=== PATIENT | female | born 1970 | race Caucasian/White ===

== ENCOUNTER → 2019-12-13 09:46 | Outpatient (CLI) | payer OTHER, SELFPAY ==
--- NOTE | ~2019-12-13 | US_ITS ---
EXAMINATION: US thyroid DATE: 12/13/2019 10:02 INDICATION: Thyroid disorder TECHNIQUE: Multiple ultrasound images of the thyroid were obtained. COMPARISON: None. FINDINGS: The right thyroid lobe measures 5.3 x 2.3 x 2.1 cm. The left thyroid lobe measures 5.2 x 2.1 x 2.1 c m. There is heterogeneous echogenicity with coarsened echotexture throughout both the left and right thyroid lobes. No discrete nodules identified. IMPRESSION: 1. Enlarged heterogeneous thyroid without discrete thyroid nodules which could be seen in the setting of Zhen's thyroiditis. Reviewed, dictated and finalized at location A.
== END ==
PROVIDERS: PCP Physician Assistant; Visit Provider Nurse Practitioner
DX: E07.9 Disorder of thyroid, unspecified (principal)
CPT/HCPCS: 76536

== ENCOUNTER 2019-12-18 10:10 | Outpatient (CLI) | payer OTHER, SELFPAY ==
--- NOTE | ~2019-12-18 | MM_ITS ---
EXAMINATION: MM screening nj BI w reshma HISTORY: Screening mammogram TECHNIQUE: Craniocaudal and mediolateral oblique 3-D tomosynthesis images were obtained and synthetic 2-D images were generated. CAD analysis was submitted and interpreted. COMPARISON: Comparison to multiple prior studies sequentially, with oldest reviewed study dated 07/2013. BREAST PARENCHYMAL COMPOSITION: There are scattered areas of fibroglandular density. FINDINGS: There is no evidence of suspicious mass, calcification, or architectural distortion to sugg est malignancy in either breast. There has been no suspicious interval change. IMPRESSION: 1. No mammographic evidence of malignancy. 2. Recommend routine screening mammography in one year. BI-RADS Category 1: Negative Reviewed, dictated and finalized at location A.
== END 2019-12-18 10:11 | disposition home or self-care (01) ==
LOC: ANHIMG 10:12
PROVIDERS: PCP Physician Assistant; Visit Provider Nurse Practitioner
DX: Z12.31 Encounter for screening mammogram for malignant neoplasm of breast (principal)
CPT/HCPCS: 77063; 77067

== ENCOUNTER → 2020-09-05 13:28 | Outpatient (CLI) | payer OTHER, SELFPAY ==
--- NOTE | ~2020-09-05 | XR_ITS ---
XR thoracic spine 3V DATE: 09/05/2020 14:18 INDICATION: Back pain. Right upper quadrant pain. TECHNIQUE: AP, lateral, swimmer views COMPARISON: 04/11/2012 thoracic spine FINDINGS: There is diffuse idiopathic skeletal hyperostosis of the lower thoracic spine. No fracture or bone destruction is evident. The thoracic pedicles are intact. No paraspinal soft tiss ue thickening. IMPRESSION: Diffuse idiopathic skeletal hyperostosis Reviewed, dictated and finalized at location A.
--- NOTE | ~2020-09-05 | CT_ITS ---
EXAMINATION: CT abdomen w con EXAM DATE: 09/05/2020 14:07 INDICATION: Right upper quadrant pain. Nausea, diarrhea TECHNIQUE: Spiral CT of the abdomen was performed following intravenous injection of 100 mL Omnipaque 350. Axial, coronal and sagittal images were reviewed. The dose-length product (DLP) for this exam ination was 721.00 mGy-cm. The exposure was tailored according to patient size (auto mA exposure con trol), and iterative reconstruction (ASIR) was used as additional dose reduction technique. Compariso n is made to prior examination from 05/31/2019. FINDINGS: There is a right paraspinal mass at T7 level measuring 2.2 cm, 64 average Hounsfield units. It is well defined and there is no adjacent osseous erosion, has nonaggressive appearance, although not completely imaged on this study. This level was not imaged on the prior abdomen pelvis CT for chr onicity. 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 Are there any old CT chest ex ams from outside institution for comparison? Suspect right liver dome lesion with peripheral nodular enhancement measuring about 2 cm, probably a hemangioma. The spleen, pancreas, adrenal glands are unremarkable. Gallbladder is unremarkable. No biliary obstruction. Portal and splenic veins are patent. Kidneys enhance symmetrically. There is no hydronephrosis. There is no retroperitoneal lymphadenopathy. The appendix is normal. There is small sliding gastroesophageal hiatal hernia. There is expected am ount of colonic stool. No free intraperitoneal gas. The heart is normal in size. There are no pe ricardial or pleural effusions. The lung bases are unremarkable. There are no osteoblastic or osteo lytic lesions identified. IMPRESSION: 1. Incidental mid thoracic right paraspinal mass, incompletely imaged. Inquire about any old cross-se ctional imaging to determine temporal stability. Barring that, recommend MR thoracic spine without an d with contrast for better characterization, although differential diagnosis probably will not change , assuming nonaggressive features on that exam. 2. Small right liver dome lesion likely hemangioma. 3. Small hiatal hernia. 4. No acute abdominal findings. Reviewed, dictated and finalized at location A. IMPRESSION: 1. Incidental mid thoracic right paraspinal mass, incompletely imaged. Inquire about any old cross-sectional imaging to determine temporal stability. Barring that, recommend MR thoracic spine without and with contrast for better characte rization, although differential diagnosis probably will not change, assuming no naggressive features on that exam. 2. Small right liver dome lesion likely hemangioma. 3. Small hiatal hernia. 4. No acute abdominal findings.
== END ==
PROVIDERS: PCP Physician Assistant; Visit Provider Physician Assistant
DX: K44.9 Diaphragmatic hernia without obstruction or gangrene (principal)
CPT/HCPCS: 72072; 74160; Q9967

== ENCOUNTER → 2020-09-12 14:32 | Outpatient (CLI) | payer OTHER, SELFPAY ==
--- NOTE | ~2020-09-12 | MR_ITS ---
EXAMINATION: MR thoracic spine wo/w con EXAM DATE: 09/12/2020 15:38 INDICATION: Mass of thoracic structure mass of thoracic structure. TECHNIQUE: Multi-sequential, multiplanar MR images of the thoracic spine were obtained without contra st. Sagittal T1, T2, T2 fat saturation, axial T2 weighted images reviewed. Correlation is made to CT abdomen 09/05/2020. FINDINGS: Right paraspinal region, lateral to the T7 vertebral body is a T2 hyperintense, T1 hypointe nse well-circumscribed ovoid mass lesion, which also demonstrates avid enhancement. Measurements are 2.5 x 1.9 cm axial dimensions by 3.2 cm craniocaudal dimension. Appearance is characteristic of a per ipheral nerve sheath tumor. Given it appears encapsulated, has nonaggressive features, malignant hist ologies of sympathetic or perisplenic chain tumor, or lymphoma are much less likely but not totally e xcludable. No other areas of abnormal enhancement. There is mild thoracic spondylosis without significant centra l canal or neural foraminal stenosis. Normal bone marrow signal. 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 Consider neurosurgical consult for further management. At a minimum, a 3-6 month fo llow-up MR with contrast should be obtained to determine stability. Reviewed, dictated and finalized at location A. IMPRESSION: Right mid thoracic paraspinal mass, appearance most consistent wit h benign peripheral nerve sheath tumor. Consider neurosurgical consult for furt her management. At a minimum, a 3-6 month follow-up MR with contrast should be obtained to determine stability.
[2020-09-12 15:15] LABS: Estimated Glomerular Filt Rate > 60
== END ==
PROVIDERS: PCP Physician Assistant; Visit Provider Physician Assistant
DX: R22.2 Localized swelling, mass and lump, trunk (principal)
CPT/HCPCS: 72157; A9577

== ENCOUNTER → 2020-10-11 15:00 | Outpatient (CLI) | payer OTHER, SELFPAY ==
--- NOTE | ~2020-10-11 | MR_ITS ---
EXAMINATION: MR cervical spine wo con DATE: 10/11/2020 15:59 INDICATION: Neck pain. TECHNIQUE: Magnetic resonance imaging (MRI) of the cervical spine was performed without intravenous c ontrast. Sequences included sagittal T2-weighted FSE, sagittal STIR FSE, sagittal T1-weighted FSE, ax ial MERGE, and axial T2-weighted FSE. COMPARISON: None FINDINGS: Bone alignment is normal. Vertebral body heights and intervertebral disc heights are normal . The spinal cord signal intensity is normal. The following disc levels are specifically discussed: C2-C3: The disc does not extend beyond the endplate margin. There is no uncovertebral joint osteoarth ritis. There is mild right and severe left facet joint osteoarthritis. There is mild left neural fora shine stenosis. There is no central canal stenosis. C3-C4: The disc does not extend beyond the endplate margin. There is no uncovertebral joint osteoarth ritis. There is mild right and severe left facet joint osteoarthritis. There is no neural foraminal s tenosis. There is no central canal stenosis. C4-C5: The disc does not extend beyond the endplate margin. There is no uncovertebral joint osteoarth ritis. There is severe bilateral facet joint osteoarthritis. There is mild left neural foraminal sten osis. There is no central canal stenosis. C5-C6: The disc does not extend beyond the endplate margin. There is no uncovertebral joint osteoarth ritis. There is severe right and mild left facet joint osteoarthritis. There is no neural foraminal s tenosis. There is no central canal stenosis. C6-C7: The disc does not extend beyond the endplate margin. There is no uncovertebral joint osteoarth ritis. There is severe bilateral facet joint osteoarthritis. There is no neural foraminal stenosis. T here is no central canal stenosis. C7-T1: The disc does not extend beyond the endplate margin. There is no uncovertebral joint osteoarth ritis. There is severe bilateral facet joint osteoarthritis. There is mild left neural foraminal sten osis. There is no central canal stenosis. IMPRESSION: 1. Mild cervical spondylosis. Reviewed, dictated and finalized at location B.
== END ==
PROVIDERS: PCP Physician Assistant; Visit Provider Nurse Practitioner Acute Care
DX: D49.2 Neoplasm of unspecified behavior of bone, soft tissue, and skin (principal); M47.892 Other spondylosis, cervical region
CPT/HCPCS: 72141

== ENCOUNTER 2021-03-01 14:05 | Emergency (ER) | payer OTHER, SELFPAY ==
--- NOTE | ~2021-03-01 | XR_ITS ---
EXAMINATION: XR hand RT min 3V DATE: 03/01/2021 14:33 INDICATION: Right hand injury and pain. TECHNIQUE: 3 views of right hand were obtained. COMPARISON: None. FINDINGS: Bone alignment is normal. No fracture. There is mild osteoarthritis of second metacarpophal angeal joint. IMPRESSION: 1. No fracture. Reviewed, dictated and finalized at location A. IMPRESSION: 1. No fracture.
[2021-03-01 14:10] VITALS: BP 141/92; PULSE 97; RESP 16; TEMP 36.1; O2SAT 99
--- NOTE | 2021-03-01 14:43 | ED.GENADULT ---
HPI - General Adult General Chief complaint: Extremity Injury, Upper Stated complaint: Needs Xray Finger Time Seen by Provider: 03/01/21 14:18 Source: patient Mode of arrival: ambulatory Limitations: no limitations History of Present Illness HPI narrative: Patient presents with chief complaint of pain, bruising and swelling to the right third digit that she sustained after having books fall on the extremity while at work. The extremity was hyperextended. Patient states that she took ibuprofen prior to arrival. Patient denies any other injuries. Related Data Home Medications Medication Instructions Recorded Confirmed levonorgestrel 20 mcg/24 hours (6 1 device I-UTERINE ONCE 05/25/19 07/05/19 yrs) 52 mg intrauterine device calcium carbonate [Tums] 200 mg PO BID PRN 07/05/19 07/05/19 Allergies Allergy/AdvReac Type Severity Reaction Status Date / Time No Known Allergies Allergy Mild Verified 07/06/19 11:37 Review of Systems Review of Systems: CONSTITUTIONAL: Denies fever, chills, or sweats. EYES: Denies visual changes, redness, or discharge. ENT: Denies rhinorrhea, congestion, sore throat, or otalgia. CARDIOVASCULAR: Denies chest pain, palpitations, or edema. RESPIRATORY: Denies cough or dyspnea. GASTROINTESTINAL: Denies abdominal pain, nausea, vomiting, or diarrhea. GENITOURINARY: Denies dysuria or hematuria. SKIN: Denies rash or itching. MUSCULOSKELETAL: Reports pain and swelling and bruising denies back pain or myalgia. NEUROLOGIC: Denies headache, numbness, dizziness, or weakness. PSYCHIATRIC: Denies anxiety or depression. [facility] Past Medical History Medical History (Updated 03/01/21 @ 14:52 by Brian Duffy PA-C) GERD (gastroesophageal reflux disease) Social History Social History Smoking status: Former smoker Tobacco type: cigarettes Alcohol intake: current Alcohol use details: rarely Exam Narrative: GENERAL: Well-appearing, well-nourished, and in no acute distress. HEAD: Normocephalic, atraumatic. EYES: PERRLA and EOMI. CHEST: Clear to auscultation. No respiratory distress. No wheezes rales or rhonchi HEART: Regular rate and rhythm. EXTREMITIES: Bruising to the right third digit with decreased flexion at the MCP. Mild swelling noted. No open wounds. SKIN: Warm, dry, no rash. NEURO: No focal deficits. Alert and oriented x3. PSYCH: Normal mood and affect. Course Vital Signs Vital signs: Vital Signs Temperature 97.0 F L 03/01/21 14:10 Pulse Rate 97 03/01/21 14:10 Respiratory Rate 16 03/01/21 14:10 Blood Pressure 141/92 H 03/01/21 14:10 Pulse Oximetry 99 03/01/21 14:10 Temperature 97.0 F L 03/01/21 14:10 Pulse Rate 97 03/01/21 14:10 Respiratory Rate 16 03/01/21 14:10 Blood Pressure 141/92 H 03/01/21 14:10 Pulse Oximetry 99 03/01/21 14:10 Medical Decision Making MDM Narrative Medical decision making narrative: Symptoms with patient sprain care the need to follow-up with primary care or specialist for further evaluation. Discussed the x-ray does not show any ligament injury and patient has decreased flexion. Discussed the need to follow-up with for further evaluation of tendon and ligament function. Vital Signs Vital Signs: Vital Signs Temperature 97.0 F L 03/01/21 14:10 Pulse Rate 97 03/01/21 14:10 Respiratory Rate 16 03/01/21 14:10 Blood Pressure 141/92 H 03/01/21 14:10 Pulse Oximetry 99 03/01/21 14:10 Temperature 97.0 F L 03/01/21 14:10 Pulse Rate 97 03/01/21 14:10 Respiratory Rate 16 03/01/21 14:10 Blood Pressure 141/92 H 03/01/21 14:10 Pulse Oximetry 99 03/01/21 14:10 Imaging Data Radiologist's impression: ITS Impressions Hand X-Ray 03/01/21 14:33 IMPRESSION: 1. No fracture. Discharge Plan Discharge Clinical Impression: Other sprain of right middle finger, initial encounter Patient Disposition: Home, Self-Care
== END 2021-03-01 15:05 | disposition home or self-care (01) ==
PROVIDERS: Emergency Provider Emergency Medicine; PCP Physician Assistant
DX: S63.612A Unspecified sprain of right middle finger, initial encounter (principal); K21.9 Gastro-esophageal reflux disease without esophagitis; Z87.891 Personal history of nicotine dependence; W20.8XXA Other cause of strike by thrown, projected or falling object, initial encounter
CPT/HCPCS: 29130; 73130; 99283

== ENCOUNTER → 2021-04-30 14:44 | Outpatient (CLI) | payer OTHER, SELFPAY ==
--- NOTE | ~2021-04-30 | XR_ITS ---
EXAMINATION: XR foot LT min 3V DATE: 04/30/2021 14:59 INDICATION: Left foot pain TECHNIQUE: Dorsoplantar, lateral, and 2 oblique views of the left foot were obtained. COMPARISON: None. FINDINGS: There is no fracture, dislocation, or subluxation. There is mild polyarticular osteoarthrit is in several interphalangeal joints and at the first metatarsophalangeal joint. A plantar calcaneal enthesophyte is noted. The soft tissues are unremarkable. IMPRESSION: 1. No acute osseous abnormality. 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
== END ==
PROVIDERS: PCP Physician Assistant; Visit Provider Physician Assistant
DX: S99.922A Unspecified injury of left foot, initial encounter (principal)
CPT/HCPCS: 73630

== ENCOUNTER 2022-01-04 07:28 | Outpatient (CLI) | payer OTHER, SELFPAY ==
--- NOTE | 2022-01-22 14:28 | WPDHOMESLEEP ---
Sleep Study - Home Unattended Date of Study: 01/04/22 Ordering Provider: Erum Flores, RACHAEL Interpreting Provider: Seema Vann, DO Home Sleep Study Type: Watch PAT Height: 1.68 m Weight: 110.223 kg Body Mass Index: 39.2 Neck Circumference (inches): 15 [place]: 9 Reason for Sleep Study Snoring and unrefreshing sleep. Sleep History The patient is a 51-year-old female with hypothyroidism, anxiety, depression, GERD and perimenopause that had a sleep study ordered by her primary care for evaluation of sleep apnea. 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 She rarely awakens from sleep short of breath. She rarely awakens at night with heartburn, belching or cough. She constantly snores loud enough that others complain. She rarely has trouble sleeping when she has a cold. She denies waking up gasping for air throughout the night. She constantly has breathing problems at night observed by herself and others. She constantly sweats excessively at night. She denies having heart palpitations or irregular heartbeats during the night. She occasionally falls asleep during the day but never while driving. She denies sleep paralysis and cataplexy. She occasionally has trouble at school or work due to sleepiness. She occasionally experiences vivid dreamlike scenes upon awakening or falling asleep. She rarely has nightmares and occasionally remembers her dreams. She frequently has thoughts racing through her mind. She occasionally feels sad or depressed. She constantly has anxiety. She occasionally has muscular tension. She occasionally notices parts of her body jerk. She denies kicking during the night. She occasionally has crawling and aching feelings in her legs but rarely has leg pain during the night. She denies grinding her teeth during sleep and awakening with morning jaw pain. She denies being bothered by pain during the day and denies being awakened by pain during the night. She constantly wakes up feeling stiff in the morning. She constantly wakes up with sore or achy muscles. She constantly wakes up with pain in the neck, spine and other joints. She goes to bed between 9-10 p.m. on weekdays and between 11:00 p.m. and midnight on the weekends. She can fall asleep within 10-15 minutes. She doesn't wake up throughout the night. She wakes up at 6:00 a.m. on weekdays and 9:00 a.m. on the weekends. She typically gets 7-8 hours of sleep per night. She will stay in bed for 1 hour after waking up on the weekends. She currently lives with her . She does not consume any caffeinated beverages within 2 hours of bedtime. She does not engage in physical exercise before bedtime. She will watch television before falling asleep. She will take naps in the afternoon or the evening but they are not refreshing. She drinks 2-3 caffeinated beverages per day. She will drink alcohol occasionally. She denies tobacco and recreational drug use. [facility] Past Medical History Medical History GERD (gastroesophageal reflux disease) Social History Social History Smoking status: Former smoker Tobacco type: cigarettes Alcohol intake: current Alcohol use details: rarely Medications Home Medications Medication Instructions Recorded Confirmed Type levonorgestrel 20 mcg/24 hours (7 1 device intrauterine ONCE 05/25/19 07/05/19 History yrs) 52 mg intrauterine device (Mirena) calcium carbonate 200 mg calcium 200 mg PO BID PRN Indigestion 07/05/19 07/05/19 History (500 mg) chewable tablet (Tums) omeprazole 20 mg capsule,delayed See Rx Instructions .Route 03/01/20 Rx release .COMPLEX #30 caps Sleep Procedure The sleep study was completed using [employer] a technically adequate device with seven channels: peripheral arterial tone, actigraphy, body position, snore, respiratory movement, pulse oximetry, slee
[2022-01-22 14:34] VITALS: BMI 39.2
== END 2022-01-07 11:34 | disposition home or self-care (01) ==
LOC: ANHCSM 07:29
PROVIDERS: PCP Physician Assistant; Visit Provider Physician Assistant
DX: G47.9 Sleep disorder, unspecified (principal); G47.33 Obstructive sleep apnea (adult) (pediatric)
CPT/HCPCS: 95800

== ENCOUNTER 2022-03-15 14:37 | Outpatient (CLI) | payer OTHER, SELFPAY ==
--- NOTE | 2022-03-15 | ECHO_ITS ---
Patient Info Name: Kaylyn Williamson Age: 51 years : 1970 Gender: Female Ht: 66 in Wt: 240 lbs BSA: 2.30 m2 HR: 83 bpm BP: 122 / 84 mmHg Technical Quality: Fair Exam Date: 03/15/2022 3:07 PM Exam Location: [facility] Patient Status: Outpatient Admit Date: 03/15/2022 Staff Ordering Physician: IssaErum PA-C Boom Tender: Yasmine Villela RDCS Attending Provider: Erum Love PA-C Exam Type: CA echo doppler color flow Study Info Indications R94.31 - Abnormal electrocardiogram ECG EKG Complete two-dimensional, color flow and Doppler transthoracic echocardiogram is performed. Summary 1. Complete two-dimensional, color flow and Doppler transthoracic echocardiogram is performed. 2. Left ventricular chamber dimension is normal. 3. Left ventricular systolic function is normal, estimated at 60-65%. 4. The left ventricular diastolic function is normal. 5. Left atrial chamber dimension is mildly enlarged. 6. No pulmonary hypertension, estimated pulmonary arterial systolic pressure is 27 mmHg. Left Ventricle Tissue doppler is not performed. Left ventricular chamber dimension is normal. Left ventricular systolic function is normal, estimated at 60-65%. The left ventricular diastolic function is normal. Right Ventricle Right ventricular chamber dimension is normal. Right ventricular systolic function is normal. Left Atria Left atrial chamber dimension is mildly enlarged. Right Atria Right atrial chamber dimension is normal. Aortic Valve The aortic valve is trileaflet. There is no aortic valve stenosis. There is no aortic valve regurgitation. Pulmonic Valve There is no pulmonic regurgitation. Mitral Valve There is no mitral valve stenosis. There is no mitral valve regurgitation. Tricuspid Valve There is no tricuspid valve regurgitation. No pulmonary hypertension, estimated pulmonary arterial systolic pressure is 27 mmHg. Pericardium/Pleural There is no pericardial effusion. Inferior Vena Cava Normal inferior vena cava with >50% collapse upon inspiration consistent with normal right atrial pressure, 5 mmHg. Aorta The aortic root size at the sinus of Valsalva is normal. Left Ventricular Outflow Tract Name Value Normal LVOT 2D LVOT Diameter 2.0 cm LVOT Doppler LVOT Peak Gradient 5 mmHg LVOT Mean Gradient 3 mmHg LVOT VTI 22 cm LVOT VTI/AV VTI Ratio 1.0 LVOT Stroke Volume 66 ml LVOT CO 13.8 l/min LVOT CI 6.0 l/min/m2 Pulmonic Valve Name Value Normal PV Doppler PV Peak Gradient 3 mmHg Mitral Valve Na
== END 2022-03-15 14:38 | disposition home or self-care (01) ==
PROVIDERS: PCP Physician Assistant; Visit Provider Physician Assistant
DX: R94.31 Abnormal electrocardiogram [ECG] [EKG] (principal)
CPT/HCPCS: 93306

== ENCOUNTER 2023-05-29 11:09 | Emergency (ER) | payer OTHER, SELFPAY ==
[2023-05-29 11:26] VITALS: BP 118/104; PULSE 101; RESP 16; TEMP 37.1; O2SAT 100
--- NOTE | 2023-05-29 11:46 | ED.URI ---
HPI - URI/Sore Throat General Chief Complaint: Upper Respiratory Infection Stated Complaint: COUGH/FEVER/HEADACHE/STUFFY NOSE/DRAINAGE/CP Time Seen by Provider: 05/29/23 11:47 Source: patient Mode of arrival: ambulatory Limitations: no limitations History of Present Illness HPI Narrative: 52-year-old female presented for complaints of worsening cough and chest discomfort with coughing over the past week. Endorses some mild sob with exertion and subjective fever. She also endorses nasal congestion and drainage with a sore throat. Patient's pcp prescribed Z-Celestino and Tessalon Perles 3 days ago, also guaifenesin with codeine but unable to tolerate it stating it keeps her awake. Denies any improvement with tessalon perles. Testing negative for covid every other day since onset. Denies wheezing, n/v/d. Related Data Home Medications Medication Instructions Recorded Confirmed levonorgestrel 21 mcg/24 hours (8 1 device intrauterine ONCE 05/25/19 05/29/23 yrs) 52 mg intrauterine device (Mirena) Allergies Allergy/AdvReac Type Severity Reaction Status Date / Time No Known Allergies Allergy Mild Verified 05/29/23 11:48 Review of Systems Review of Systems: CONSTITUTIONAL: Denies body aches, fever, chills, or sweats. EYES: Denies visual changes, redness, or discharge. ENT: Reports rhinorrhea, congestion, sore throat CARDIOVASCULAR: Denies chest pain, palpitations, or edema. RESPIRATORY: Reports cough, mild sob, denies wheezing. GASTROINTESTINAL: Denies abdominal pain, nausea, vomiting, or diarrhea. SKIN: Denies rash, itching, or wounds. MUSCULOSKELETAL: Denies back pain, joint pain, or myalgia. NEUROLOGIC: Denies headache, numbness, tingling, or weakness. All systems reviewed & are unremarkable except as noted in HPI and below PMFSH Past Medical History Medical History GERD (gastroesophageal reflux disease) Social History Social History Smoking status: Former smoker Tobacco type: cigarettes Alcohol intake: current Alcohol use details: rarely Comments At time of signature, I have reviewed and agree with nursing past medical, surgical, social and family history unless otherwise noted. Please see nursing chart for further information. There is no relevant family history pertinent to the presenting complaint Exam Narrative: GENERAL: Well-appearing, in no acute distress. EYES: EOMI. No redness or drainage. Conjunctivae normal. ENT: Mucous membranes pink and moist. TMs normal bilaterally. Throat normal. Uvula midline. NECK: Normal AROM. Supple. CHEST: No respiratory distress. Lungs clear to all uriarte. 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 HEART: Regular rate and rhythm. No murmur appreciated. ABDOMEN: Soft, nontender, nondistended, normal active bowel sounds. EXTREMITIES: Normal range of motion. No edema. SKIN: Warm, dry, no rash. Capillary refill normal. Normal skin turgor. NEURO: Alert and oriented x3. Gait steady. PSYCH: Normal affect. Course Course Emergency Course: Patient is aware of diagnosis, understands and agrees to treatment plan. Anticipatory guidance given. Patient agrees to follow-up as directed and is aware of reasons to seek care at the emergency department. Portions of this record may have been created with voice recognition software Level of Care: Express Care Visit Vital Signs Vital signs: Vital Signs Temperature 98.7 F 05/29/23 11:26 Pulse Rate 101 H 05/29/23 11:26 Respiratory Rate 16 05/29/23 11:26 Blood Pressure 118/104 H 05/29/23 11:26 Pulse Oximetry 100 05/29/23 11:26 Temperature 98.7 F 05/29/23 11:26 Pulse Rate 101 H 05/29/23 11:26 Respiratory Rate 16 05/29/23 11:26 Blood Pressure 118/104 H 05/29/23 11:26 Pulse Oximetry 100 05/29/23 11:26 MDM - URI/Sore Throat MDM Narrative Medical decision making narrative
== END 2023-05-29 12:05 | disposition home or self-care (01) ==
PROVIDERS: Emergency Provider Nurse Practitioner Family; PCP Physician Assistant
DX: J40 Bronchitis, not specified as acute or chronic (principal); Z87.891 Personal history of nicotine dependence; K21.9 Gastro-esophageal reflux disease without esophagitis
CPT/HCPCS: 99213; G0463

== ENCOUNTER 2023-06-06 10:24 | Emergency (ER) | payer OTHER, SELFPAY ==
[2023-06-06] VITALS (22 sets, daily range): BP systolic 124–173; BP diastolic 73–113; PULSE 81–109; RESP 11–25; TEMP 36.8; O2SAT 94–99
--- NOTE | ~2023-06-06 | XR_ITS ---
EXAMINATION: XR chest 2V DATE: 06/06/2023 11:06 INDICATION: Chest heaviness TECHNIQUE: PA and lateral views of the chest are obtained. COMPARISON: 09/17/2009 FINDINGS: The lungs are free of acute opacities. No pleural effusion or pneumothorax. The cardiomedia stinal silhouette is normal. There is moderate thoracic spondylosis. IMPRESSION: 1. No acute cardiopulmonary abnormality. Reviewed, dictated and finalized at location B. ELER
--- NOTE | ~2023-06-06 | CT_ITS ---
EXAMINATION: CTA chest PE protocol DATE: 06/06/2023 12:25 INDICATION: Midsternal chest pain TECHNIQUE: Computed tomography angiography (CTA) of the chest was performed with 100 mL Omnipaque-350 intravenous contrast timed to evaluate the pulmonary arteries. Coronal maximum intensity projection 3D-reconstructions were created by the technologist. The dose-length product (DLP) was 739.65 mGy-cm. Automated exposure control and iterative reconstruction technique were employed. COMPARISON: 09/05/2020; thoracic spine MRI, 09/12/2020 FINDINGS: The pulmonary arteries are well-opacified. No pulmonary embolism is identified. There is mi ld dependent atelectasis. No pleural effusion or pneumothorax. There is mild enlargement of a right p araspinal soft tissue mass which measures 2.9 x 2.1 cm, previously 2.5 x 1.9 cm. No pathologically en larged thoracic lymph nodes are identified. The heart size is normal. There is a small sliding hiatal hernia. There is mild thoracic spondylosis. IMPRESSION: 1. No pulmonary embolism or acute cardiopulmonary abnormality. 2. 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 Reviewed, dictated and finalized at location B. N INSTALLER IMPRESSION: 1. No pulmonary embolism or acute cardiopulmonary abnormality. 2. 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
--- NOTE | 2023-06-06 10:25 | ECG_ITS ---
Measurements Intervals [place] Rate: 101 P: 38 [place]: 141 QRS: -24 QRSD: 82 T: 16 QT: 317 QTc: 412 Interpretive Statements SINUS TACHYCARDIA BORDERLINE LEFT AXIS DEVIATION [QRS AXIS < -20] VOLTAGE CRITERIA FOR LVH [MEETS CRITERIA IN ONE OF: R(aVL), S(V1), R(V5), R(V5/V6)+S(V1)] NONSPECIFIC T-WAVE ABNORMALITY ABNORMAL ECG NO PREVIOUS ECG AVAILABLE FOR COMPARISON Electronically Signed On 06-06-2023 14:11:39 JOURNEY[employer] ELECT[employer]ICIAN by Walter Ellis M.D.
[2023-06-06] MEDS: ASPIRIN 81 MG CHEWABLE TABLET 324 MG PO (10:38)
[2023-06-06 10:41] LABS: Basophils Absolute Auto 0.1 K/mm3 (0.0-0.1); Basophils Percent Auto 0.7 % (0.2-1.2); Eosinophils Absolute Auto 0.2 K/mm3 (0-0.3); Eosinophils Percent Auto 1.2 % (0-4.4); Hematocrit 43.7 % (37.0-47.0); Hemoglobin 14.7 g/dL (12.0-15.0); Immature Granulocyte Absolute 0.04 K/mm3 (0.00-0.031); Immature Granulocyte Percent A 0.3 % (0-0.5); Lymphocytes Absolute Auto 3.29 K/mm3 (0.9-3.2); Lymphocytes Percent Auto 27.4 % (18.3-44.2); Mean Corpuscular HGB Conc 33.6 g/dl (32-36); Mean Corpuscular Hemoglobin 29.8 pg (26-34); Mean Corpuscular Volume 88.5 fl (80-100); Mean Platelet Volume 10.8 fl (7.4-10.4); Monocytes Absolute Auto 1.2 K/mm3 (0.1-0.6); Monocytes Percent Auto 10.2 % (2.6-8.5); Neutrophils Absolute Auto 7.2 K/mm3 (1.3-6.7); Neutrophils Percent Auto 60.2 % (45.5-73.1); Platelet Count Result 285 k/mm3 (150-375); Red Blood Count 4.94 M/mm3 (4.2-5.4); Red Cell Distribution Width 12.6 % (11.5-14.5)
[2023-06-06 10:51] LABS: Prothrombin Time 13.7 Seconds (11.1-14.7)
[2023-06-06 10:52] LABS: Partial Thromboplastin Time 20.5 SECONDS (22.3-36.8)
[2023-06-06 11:18] LABS: Alanine Aminotransferase 16 U/L (6-35); Albumin Level 3.5 g/dL (3.5-5.1); Alkaline Phosphatase 81 U/L (38-126); Anion Gap 2 mmol/L (8-16); Aspartate Amino Transferase 17 U/L (14-36); Bilirubin,Total 0.4 mg/dL (0.2-1.3); Blood Urea Nitrogen 12 mg/dL (7-17); Calcium 8.4 mg/dL (8.4-10.2); Carbon Dioxide 31 mmol/L (22-30); Chloride 106 mmol/L (98-107); Estimated CRCL calculation 89 ml/min; Estimated Glomerular Filt Rate > 60; Glucose 81 mg/dL (65-110); Lipase 217 U/L (23-300); Potassium 3.3 mmol/L (3.4-5.0); Sodium 139 mmol/L (137-145)
[2023-06-06 11:30] LABS: Troponin I < 0.012 ng/mL (0.000-0.034)
--- NOTE | 2023-06-06 11:31 | ED.GENADULT ---
[facility] - General Adult General Chief complaint: Chest Pain Stated complaint: Chest pains Time Seen by Provider: 06/06/23 10:31 Source: patient Mode of arrival: ambulatory Limitations: no limitations History of Present Illness HPI narrative: This is a 52-year-old female with PMH of GERD who presents to the ED with chief complaint of chest pain for the past couple of days, worse last night. Reports that it has been intermittent in nature. describes a central chest heaviness that comes on with a 6/10 pain when it comes. Reports that it radiates to the left shoulder and left arm at night. She has had occasional numbness and tingling in the upper extremities. She also reports palpitations. Reports recent history of bronchitis which seemed to have gotten better. Chest pain does not seem to be associated with cough. She does note that she has been under a lot of stress lately. Denies shortness of breath, LOC, vomiting, diaphoresis, fevers, chills, abdominal pain, nausea, urinary problems. Related Data Home Medications Medication Instructions Recorded Confirmed levonorgestrel 21 mcg/24 hours (8 1 device intrauterine ONCE 05/25/19 05/29/23 yrs) 52 mg intrauterine device (Mirena) Allergies Allergy/AdvReac Type Severity Reaction Status Date / Time No Known Allergies Allergy Mild Verified 06/06/23 10:38 Review of Systems Review of Systems: All systems as dictated in [facility] Past Medical History Medical History (Updated 06/06/23 @ 14:13 by Agustin Bennett PA-C) GERD (gastroesophageal reflux disease) Social History Social History Smoking status: Former smoker Tobacco type: cigarettes Alcohol intake: current Alcohol use details: rarely Exam Narrative: GENERAL: Well-appearing, well-nourished, and in no acute distress. HEAD: Normocephalic, atraumatic. EYES: PERRLA and EOMI. ENT: Nares clear, no rhinorrhea or epistaxis. Mucous membranes moist. Oropharynx without tonsillar hypertrophy exudate or other lesions. NECK: Supple. No adenopathy or masses. CHEST: No respiratory distress. Clear to auscultation. No wheezes rales or rhonchi HEART: Regular rate and rhythm. No murmur heard. Normal peripheral pulses. ABDOMEN: Soft, nontender, nondistended, normal active bowel sounds. MSK: Normal range of motion. No edema. SKIN: Warm, dry, no rash. NEURO: Alert and oriented x3. No focal deficits. PSYCH: Normal mood and affect. Course Vital Signs Vital signs: Vital Signs Temperature 98.2 F 06/06/23 10:28 Pulse Rate 109 H 06/06/23 10:28 Respiratory Rate 18 06/06/23 10:28 Blood Pressure 173/113 H 06/06/23 10:28 Pulse Oximetry 98 06/06/23 10:28 Oxygen Delivery Room Air 06/06/23 10:28 Temperature 98.2 F 06/06/23 10:28 Pulse Rate 83 06/06/23 13:46 Respiratory Rate 19 06/06/23 13:46 Blood Pressure 137/77 06/06/23 13:46 Pulse Oximetry 99 06/06/23 13:32 Oxygen Delivery Room Air 06/06/23 13:32 Medical Decision Making MDM Narrative Medical decision making narrative: This is a 52-year-old female who presents to the ED with chief complaint of chest pain for the past several days. Recent treatment for bronchitis. Vitals are normal. Exam is benign. EKG shows sinus rhythm. Comes in or only very slightly tachycardic at 101. No ischemia on ekg. Lab work is largely unremarkable. Serial troponin is negative. chest x-ray negative. D-dimer did end up being slightly elevated at 0.63, CTA PE protocol ordered. CTA: 1. No pulmonary embolism or acute cardiopulmonary abnormality. 2. 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 overall workup is grossly negative. Heart score 3. This chest pain may be due to a complaint of her bronchitis that she has been dealing with recently. Pt will be discharged in stable co
[2023-06-06 12:06] LABS: D Dimer 0.64 ug/mL (<0.48)
--- NOTE | 2023-06-06 13:27 | ECG_ITS ---
Measurements Intervals [place] Rate: 81 P: 20 MD: 153 QRS: -20 QRSD: 84 T: 15 QT: 388 QTc: 453 Interpretive Statements SINUS RHYTHM VOLTAGE CRITERIA FOR LVH [MEETS CRITERIA IN ONE OF: R(aVL), S(V1), R(V5), R(V5/V6)+S(V1)] NONSPECIFIC T-WAVE ABNORMALITY ABNORMAL ECG COMPARED TO ECG 06/06/2023 10:34:04 NO SIGNIFICANT DIFFERENCE Electronically Signed On 06-06-2023 14:16:48 FISCAL ANALYST by Walter Ellis M.D.
[2023-06-06 13:53] LABS: Troponin I < 0.012 ng/mL (0.000-0.034)
== END 2023-06-06 14:23 | disposition home or self-care (01) ==
PROVIDERS: Emergency Medicine; Emergency Provider Physician Assistant; PCP Physician Assistant
DX: R07.89 Other chest pain (principal); Z87.891 Personal history of nicotine dependence
CPT/HCPCS: 36415; 71046; 71275; 80053; 83690; 84484; 85025; 85380; 85610; 85730; 93005; 99284; A9270; Q9967

== ENCOUNTER 2024-01-16 13:54 | Outpatient (CLI) | payer OTHER, SELFPAY ==
--- NOTE | ~2024-01-16 | XR_ITS ---
EXAM: XR ankle LT min 3V DATE: 01/16/2024 14:06 HISTORY: fall 01-07-24 lateral ankle pain . COMPARISON: None available. FINDINGS: Normal mineralization. Acute and chronic avulsion fractures at the tip of the lateral mall eolus. No lytic or blastic lesion. Joint spaces are maintained. Plantar enthesopathy No erosion or pe riosteal change. Soft tissues within normal limits. IMPRESSION: Acute avulsion fracture at the tip of the left lateral malleolus. Reviewed, dictated and finalized at location K.
== END 2024-01-16 13:55 ==
LOC: MICIMG 13:56
PROVIDERS: PCP Physician Assistant; Visit Provider Physician Assistant
DX: S82.62XA Displaced fracture of lateral malleolus of left fibula, initial encounter for closed fracture (principal); X58.XXXA Exposure to other specified factors, initial encounter
CPT/HCPCS: 73610

== ENCOUNTER 2024-03-16 12:59 | Emergency (ER) | payer OTHER, SELFPAY ==
[2024-03-16] VITALS (20 sets, daily range): BP systolic 112–142; BP diastolic 67–102; PULSE 69–110; RESP 12–20; TEMP 36.6; O2SAT 98–100
--- NOTE | ~2024-03-16 | CT_ITS ---
CT abdomen pelvis w con Ordering provider: Darren Duckworth MD History: 53 years Female with . RLQ pain . Comparison: None. Technique: CT abdomen and pelvis with IV and without oral contrast. Automated exposure control and it erative reconstruction technique were employed. The dose-length product was 997.16 mGy-cm. 100 mL Omn ipaque 350 was given IV. Findings: VISUALIZED LOWER CHEST: Normal. Soft tissue density is seen in the right paraspinal area of the lower thoracic area measuring 2.5 x 1 .5 cm. UPPER ABDOMINAL ORGANS: Liver: Normal. Gallbladder: Normal. Spleen: Normal. Stomach/duodenum: Sliding hiatus hernia. Pancreas: Normal. Adrenals: Normal. Kidneys: Normal. PELVIC ORGANS: The bladder is underfilled with slightly thickened wall.. IUD is seen in the uterus. Fibroid in the right side of the uterus which measures 3.9 x 2.5 x 2.6 cm.. BOWEL AND MESENTERY: Colon: No evidence of diverticulitis. Normal appendix. Small Bowel: Normal. No obstruction. Peritoneum/mesentery: No free air or free fluid. No mesenteric lymphadenopathy. RETROPERITONEUM: Normal aorta. No retroperitoneal lymphadenopathy. MUSCULOSKELETAL: Superficial soft tissues: The superficial soft tissues are normal. Bones: Age appropriate degenerative changes of the spine. IMPRESSION: 1. No evidence of appendicitis, diverticulitis or intestinal obstruction. 2. Fibroid of the uterus. 3. Sliding hiatus hernia 4. Small soft tissue density in the right paraspinal area in the lower thoracic area. Further evalua tion advised. Reviewed, dictated and finalized at location A. IMPRESSION: 1. No evidence of appendicitis, diverticulitis or intestinal obstruction. 2. Fibroid of the uterus. 3. Sliding hiatus hernia 4. Small soft tissue density in the right paraspinal area in the lower thoraci c area. Further evaluation advised.
[2024-03-16] MEDS: SODIUM CHLORIDE 0.9% IV 1,000 ML 999 ML IV CONT (14:22)
[2024-03-16 14:27] LABS: Basophils Percent Auto 0.4 % (0.2-1.2); Eosinophils Absolute Auto 0.1 K/mm3 (0-0.3); Eosinophils Percent Auto 1.3 % (0-4.4); Hematocrit 42.9 % (37.0-47.0); Hemoglobin 14.6 g/dL (12.0-15.0); Immature Granulocyte Absolute 0.02 K/mm3 (0.00-0.031); Immature Granulocyte Percent A 0.3 % (0-0.5); Lymphocytes Absolute Auto 1.94 K/mm3 (0.9-3.2); Lymphocytes Percent Auto 27.2 % (18.3-44.2); Mean Corpuscular Hemoglobin 29.9 pg (26-34); Mean Corpuscular Volume 87.7 fl (80-100); Mean Platelet Volume 11.9 fl (7.4-10.4); Monocytes Absolute Auto 0.9 K/mm3 (0.1-0.6); Monocytes Percent Auto 12.5 % (2.6-8.5); Neutrophils Absolute Auto 4.2 K/mm3 (1.3-6.7); Neutrophils Percent Auto 58.3 % (45.5-73.1); Platelet Count Result 176 k/mm3 (150-375); Red Blood Count 4.89 M/mm3 (4.2-5.4); Red Cell Distribution Width 13.4 % (11.5-14.5); White Blood Count 7.1 K/mm3 (4.5-10.0)
--- NOTE | 2024-03-16 14:34 | ED.GENADULT ---
[facility] - General Adult General Chief complaint: Unspecified Stated complaint: diarrhea Time Seen by Provider: 03/16/24 14:10 History of Present Illness HPI narrative: 53-year-old female with a history of obesity currently taking Mounjaro. She states that she is on her 1st injectable dose but has not received a 2nd dose over the last few weeks. She has been having some diarrhea with loose watery stools over last 3 days. Associates some cramping right-sided lower quadrant abdominal pain associated with the diarrhea. No bloody diarrhea, mucus in the stool. No nausea or vomiting. No epigastric pain, no history of abdominal surgeries. Was otherwise in her normal state of health and denies any chance of . States that the pain is sporadic in nature, not constant, sometimes associated with going to the bathroom and sometimes present without. Patient states she feels dehydrated but otherwise not any pain presently on evaluation. Has taken COVID swabs at home that were negative according to her. Related Data Home Medications Medication Instructions Recorded Confirmed levonorgestrel 21 mcg/24 hr (up to 1 device intrauterine ONCE 05/25/19 05/29/23 8 years) 52 mg intrauterine device (Mirena) Allergies Allergy/AdvReac Type Severity Reaction Status Date / Time No Known Allergies Allergy Mild Verified 03/16/24 13:27 Review of Systems Review of Systems: As reviewed above in HPI [facility] Past Medical History Medical History (Updated 03/16/24 @ 17:57 by Darren Duckworth MD) GERD (gastroesophageal reflux disease) Social History Social History Smoking status: Former smoker Tobacco type: cigarettes Alcohol intake: current Alcohol use details: rarely Exam Narrative: GENERAL: [Well-appearing, well-nourished, and in no acute distress.] HEAD: [Normocephalic, atraumatic.] EYES: [PERRLA and EOMI.] ENT: Nares clear, no rhinorrhea or epistaxis. Mucous membranes dry. NECK: Supple. CHEST: [Clear to auscultation. No respiratory distress.] HEART: [Regular rate and rhythm]. No murmur heard. [Normal peripheral pulses.] ABDOMEN: [Soft, nondistended], [nontender], [No rigidity or guarding] no signs of peritonitis EXTREMITIES: Normal range of motion. [No edema.] SKIN: Warm, dry, no rash. NEURO: [No focal deficits]. Alert and oriented [x3.] PSYCH: [Normal mood and affect.] Course Vital Signs Vital signs: Vital Signs Temperature 36.6 C 03/16/24 13:05 Pulse Rate 110 H 03/16/24 13:05 Respiratory Rate 16 03/16/24 13:05 Blood Pressure 132/92 H 03/16/24 13:05 Pulse Oximetry 99 03/16/24 13:05 Oxygen Delivery Room Air 03/16/24 13:05 Temperature 36.6 C 03/16/24 13:05 Pulse Rate 79 03/16/24 17:31 Respiratory Rate 15 03/16/24 17:31 Blood Pressure 117/67 03/16/24 17:31 Pulse Oximetry 100 03/16/24 17:31 Oxygen Delivery Room Air 03/16/24 13:05 Medical Decision Making MDM Narrative Medical decision making narrative: 53-year-old being no presenting with 3 days of diarrhea and right lower quadrant cramping abdominal pain intermittently. Presently she is not any pain with a soft nontender nondistended abdomen. No right lower quadrant pain or right upper quadrant pain. She is afebrile, vital signs show pulse of 81, blood pressure reassuring, 99% saturation on room air. Differential diagnosis at this time includes gastritis, gastroenteritis, inflammatory versus irritable bowel, complication of her new antidiabetic injectable, less likely infectious pathology such as appendicitis given the lack of pain or fevers, chills or other systemic features of infection. Workup was ordered including a CBC, CMP, lipase, urinalysis, test. He was given 1 L normal saline. Will re-evaluate after laboratory studies and decide if patient needs any CT imaging studies at that point but presently she appears well not
[2024-03-16 15:03] LABS: BEDSIDEPREGUCG Negative (Negative)
[2024-03-16 15:13] LABS: Add Urine Microscopic? YES; Appearance Urine Clear (Clear); Bacteria Urine None Seen /hpf; Bilirubin Urine Negative (Negative); Blood Urine Negative (Negative); Color Urine Yellow (Yellow); Glucose Urine UA Negative (Negative); Ketones Urine 1+ mg/dL (Negative); Leukocyte Esterase Ur Trace LEU/UL (Negative); Nitrate Urine Negative (Negative); Non Pathogenic Casts 0-2; Protein Urine Negative (Negative); RBC Urine 0-2 /hpf (0-2); Specific Grav Ur 1.024 (1.001-1.035); Squamous Epithelial Cell Urine None Seen /hpf (Few); Urobilinogen Urine 0.2 mg/dL (<2.0); WBC Urine 0-5 /hpf (0-3)
[2024-03-16 15:14] LABS: Alanine Aminotransferase 21 U/L (6-35); Alkaline Phosphatase 91 U/L (38-126); Anion Gap 12 mmol/L (4-12); Aspartate Amino Transferase 28 U/L (14-36); Bilirubin,Total 0.4 mg/dL (0.2-1.3); Blood Urea Nitrogen 18 mg/dL (7-17); Calcium 9.5 mg/dL (8.4-10.2); Carbon Dioxide 26 mmol/L (22-30); Chloride 100 mmol/L (98-107); Estimated CRCL calculation 93 ml/min; Estimated Glomerular Filt Rate > 60; Glucose 97 mg/dL (65-110); Lipase 280 U/L (23-300); Sodium 138 mmol/L (137-145)
[2024-03-16 15:19] LABS: Potassium 3.7 mmol/L (3.4-5.0)
[2024-03-16] MEDS: MORPHINE SULFATE (*CRX) 4 MG/ML INJ 2 MG IV PUSH (15:55)
== END 2024-03-16 18:11 | disposition home or self-care (01) ==
PROVIDERS: Emergency Provider Student in an Organized Health Care Education/Training Program; PCP Physician Assistant
DX: K52.9 Noninfective gastroenteritis and colitis, unspecified (principal); K21.9 Gastro-esophageal reflux disease without esophagitis
CPT/HCPCS: 36415; 74177; 80053; 81001; 81025; 83690; 85025; 96361; 96374; 99284; J2270; J7030; Q9967